=== PATIENT | female | born 1950 | race Caucasian/White ===

== ENCOUNTER → 2023-06-04 | Emergency (ER) | payer OTHER ==
[2023-06-04 12:37] LABS: Absolute Lymphocytes (CBC) 1.3 K/uL (0.7-4.9); Hematocrit 35.6 % (36.0-45.0); Lymphocytes % 15.3 % (15.3-44.8); MCV 92.2 fL (80-100); Platelets 529 thou/uL (152-406); RBC Red Blood Cell Count 3.86 M/uL (3.86-4.86)
[2023-06-04 12:56] LABS: Albumin 2.7 g/dL (3.4-5.0); Bilirubin Total 0.3 mg/dL (0.2-1.0); Potassium 4.3 mEq/L (3.5-5.1); Protein, Total 6.9 g/dL (6.4-8.2)
--- NOTE | 2023-06-04 13:17 | RAD REPORT ---
EXAM DESCRIPTION: RAD - Chest Single View - 06/04/2023 1:08 pm CLINICAL HISTORY: DYSPNEA COMPARISON: CHEST PA AND LAT 2 VIEW dated 07/22/2008; Chest For Pe Angio dated 05/08/2023 FINDINGS: Lines: None. Lungs: Much of the right lung is collapsed as result of the pleural fluid and probably the known lung mass. The left lung is clear. Pleural: Large right pleural effusion. Cardiac: The heart size is within normal limits. Mediastinum: Within normal limits. Bones: No acute fractures. Other: None IMPRESSION: Near complete opacification of the right hemithorax likely a combination of large right effusion, atelectasis, and known lung mass.
--- NOTE | 2023-06-04 14:25 | EDPHYS ---
Physician Documentation [facility] Name: Shara Go Age: 73 yrs Sex: Female : 1950 Arrival Date: 06/04/2023 Time: 10:51 Bed 15 Private MD: ED Physician Ryland Cummings HPI: 06/04 17:01 This 73 yrs old Female presents to ER via Wheelchair with complaints of Constipation, kdr Rt side pain, Cough, Chest Congestion, Shortness Of Breath. 17:01 Patient presents to the ED complaining of right upper quadrant pain and right flank kdr pain. She also complains of shortness of breath has been worsening over the last 6 weeks. Patient had been instructed to take laxatives and stool softeners as well as an inhaler for her shortness of breath. None of these interventions appear to be providing her with relief. Patient is further concerned that she gets tachycardia with the use of the inhaler and is reluctant to continue his use. Patient has a history of prior lung cancer. Patient had had a CT at the beginning of this month which revealed some changes that some interpreted as a potential return of her cancer. Dr. Cummins's on the other hand felt that there was another explanation as opposed to the return of cancer. Patient is not in any acute distress and her vital signs are otherwise stable. Her chest oxygen saturation is normal.. Onset: The symptoms/episode began/occurred gradually, 6 week(s) ago. Severity of symptoms: At their worst the symptoms were very mild in the emergency department the symptoms are unchanged. The patient has not experienced similar symptoms in the past. The patient has been recently seen by a physician:. Historical: - Allergies: 11:10 Sulfa (Sulfonamide Antibiotics); hb 11:10 demeclocycline; hb - Immunization history:: Adult Immunizations up to date. - Social history:: Smoking status: Patient/guardian denies using tobacco, Stopped _ months ago 1. ROS: 17:01 Constitutional: Negative for fever, chills, and weight loss, Eyes: Negative for injury, kdr pain, redness, and discharge, Neck: Negative for injury, pain, and swelling, Cardiovascular: Negative for chest pain, palpitations, and edema, Back: Negative for injury and pain, : Negative for injury, bleeding, discharge, and swelling, MS/Extremity: Negative for injury and deformity, Skin: Negative for injury, rash, and discoloration, Neuro: Negative for headache, weakness, numbness, tingling, and seizure activity. Psych: Negative for depression, anxiety, suicide ideation, homicidal ideation, and hallucinations, Allergy/Immunology: Negative for hives, rash, and allergies, Endocrine: Negative for neck swelling, polydipsia, polyuria, polyphagia, and marked weight changes, Hematologic/Lymphatic: Negative for swollen nodes, abnormal bleeding, and unusual bruising, 17:01 Respiratory: Positive for dyspnea on exertion, shortness of breath, on exertion. 17:01 Abdomen/GI: Positive for abdominal pain, of the anterior aspect of right lateral abdomen and right upper quadrant, Exam: 17:01 Constitutional: This is a well developed, well nourished patient who is awake, alert, kdr and in no acute distress. Head/Face: Normocephalic, atraumatic. Eyes: Pupils equal round and reactive to light, extra-ocular motions intact. Lids and lashes normal. Conjunctiva and sclera are non-icteric and not injected. Cornea within normal limits. Periorbital areas with no swelling, redness, or edema. Neck: Trachea midline, no thyromegaly or masses palpated, and no cervical lymphadenopathy. Supple, full range of motion without nuchal rigidity, or vertebral point tenderness. No Meningismus. Chest/axilla: Normal chest wall appearance and motion. Nontender with no deformity. No lesions are appreciated. Cardiovascular: Regular rate and rhythm with a normal S1 and S2. No gallops, murmurs, or rubs. Normal PMI, no JVD. No pulse deficits. Respiratory: Lungs have equal breath sounds bilaterally, clear to auscultation and percussion. No rales, rhonchi or wheezes noted. No increased work of breathing, no retractions or nasal flaring. Abdomen/GI: Soft, non-tender, with normal bowel sounds. No distension or tympany. No guarding or rebound. No evidence of tenderness throughout. Back: No spinal tenderness. No costovertebral tenderness. Full range of motion. Skin: Warm, dry with normal turgor. Normal color with no rashes, no lesions, and no evidence of cellulitis. MS/ Extremity: Pulses equal, no cyanosis. Neurovascular intact. Full, normal range of motion. Neuro: Awake and alert, GCS 15, oriented to person, place, time, and situation. Cranial nerves II-XII grossly intact. Motor strength 5/5 in all extremities. Sensory grossly intact. Cerebellar exam normal. Normal gait. Psych: Awake, alert, with orientation to person, place and time. Behavior, mood, and affect are within normal limits. Vital Signs: 11:07 BP 135 / 89; Pulse 95; Resp 18; Temp 98.4; Pulse Ox 97% on R/A; Weight 56.7 kg; Height hb 5 ft. 5 in. ; Pain 8/10; 11:07 Body Mass Index 20.80 (56.70 kg, 165.1 cm) hb 11:07 Pain Scale: Adult hb MDM: 14:24 Patient medically screened. kdr 17:01 Data reviewed: vital signs, nurses notes, lab test result(s), radiologic studies. kdr 06/04 11:48 Order name: CBC with Diff; Complete Time: 13:48 kdr 06/04 11:48 Order name: CMP; Complete Time: 13:48 kdr 06/04 11:48 Order name: Lipase; Complete Time: 13:48 kdr 06/04 13:00 Order name: PROBNP kdr 06/04 12:16 Order name: CXR XRAY; Complete Time: 13:48 kdr 06/04 13:17 Order name: Thoracentesis w/ US Guide EDPA 06/04 11:48 Order name: IV Saline Lock; Complete Time: 12:32 kdr 06/04 11:48 Order name: Labs collected and sent; Complete Time: 12:32 kdr Administered Medications: No medications were administered Disposition Summary: 06/04/23 14:24 Discharge Ordered Problem: an ongoing problem kdr Symptoms: have improved kdr Condition: Stable kdr Diagnosis - Shortness of breath kdr - Pleural effusion, not elsewhere classified kdr - Constipation kdr Followup: kdr - With: Private Physician - When: 2 - 3 days - Reason: If symptoms return, Further diagnostic work-up, Recheck today's complaints, Continuance of care, Re-evaluation by your physician Discharge Instructions: - Discharge Summary Sheet kdr - Pleural Effusion kdr - Shortness of Breath, Adult, [id number] kdr - Constipation, Adult, [id number] kdr Forms: - Medication Reconciliation Form kdr - Thank You Letter kdr - Patient Portal Instructions kdr - Leadership Thank You Letter kdr Signatures: Dispatcher [employer] EDMS Rittger, Ryland, MD MD kdr Jenae Knight, RN RN hb
--- NOTE | 2023-06-04 14:25 | ER ---
Nurse's Notes [facility] Name: Shara Go Age: 73 yrs Sex: Female : 1950 Arrival Date: 06/04/2023 Time: 10:51 Bed 15 Private MD: Diagnosis: Shortness of breath;Pleural effusion, not elsewhere classified;Constipation Presentation: 06/04 11:07 Chief complaint: Constipation, right sided abdominal pain, and SOB x 6 weeks. Has been hb instructed to take laxatives and softeners but has only taken one dose due to cramping. Coronavirus screen: At this time, the client does not indicate any symptoms associated with coronavirus-19. Ebola Screen: No symptoms or risks identified at this time. Initial Sepsis Screen: Does the patient meet any 2 criteria? No. Patient's initial sepsis screen is negative. Does the patient have a suspected source of infection? No. Patient's initial sepsis screen is negative. Risk Assessment: Do you want to hurt yourself or someone else? Patient reports no desire to harm self or others. Onset of symptoms was April 2023. 11:07 Method Of Arrival: Wheelchair hb 11:07 Acuity: NOAH 3 hb Historical: - Allergies: 11:10 Sulfa (Sulfonamide Antibiotics); hb 11:10 demeclocycline; hb - Immunization history:: Adult Immunizations up to date. - Social history:: Smoking status: Patient/guardian denies using tobacco, Stopped _ months ago 1. Screenin:35 [facility] ED Fall Risk Assessment (Adult) History of falling in the last 3 months, ph including since admission No falls in past 3 months (0 pts) Confusion or Disorientation No (0 pts) Intoxicated or Sedated No (0 pts) Impaired Gait Yes (1 pt) Mobility Assist Device Used Yes (1 pt) Altered Elimination No (0 pt) Score/Fall Risk Level 0 - 2 = Low Risk Oriented to surroundings, Maintained a safe environment, Provided non-skid footwear, Hourly rounding (assess needs \T\ fall precautionary measures) done. Abuse screen: Denies threats or abuse. Denies injuries from another. Nutritional screening: No deficits noted. Tuberculosis screening: No symptoms or risk factors identified. Assessment: 12:33 General: Appears in no apparent distress. Behavior is calm, cooperative, Reports ph fatigue for. 12:33 Pain: Complains of pain in right upper quadrant and right lower quadrant. Neuro: Level ph of Consciousness is awake, alert, obeys commands, Oriented to person, place, time, situation. Cardiovascular: Capillary refill < 3 seconds in bilateral fingers Patient's skin is warm and dry. Respiratory: Airway is patent Respiratory effort is even, unlabored, Respiratory pattern is regular, symmetrical. Respiratory: Reports cough that is. GI: Abdomen is non-distended, Reports lower abdominal pain, upper abdominal pain, constipation. : No signs and/or symptoms were reported regarding the genitourinary system. Derm: Skin is pink, warm \T\ dry. Musculoskeletal: Circulation, motion, and sensation intact. Range of motion: intact in all extremities. 13:24 Reassessment: taken to radiology for thoracentesis. ph Vital Signs: 11:07 BP 135 / 89; Pulse 95; Resp 18; Temp 98.4; Pulse Ox 97% on R/A; Weight 56.7 kg; Height hb 5 ft. 5 in. ; Pain 8/10; 11:07 Body Mass Index 20.80 (56.70 kg, 165.1 cm) hb 11:07 Pain Scale: Adult hb ED Course: 10:53 Patient arrived in ED. mr 10:56 Ryland Cummings MD is Attending Physician. kdr 11:01 Marina Felix, NICOLASA is Primary Nurse. ph 11:10 Triage completed. hb 11:10 Arm band placed on. hb 12:32 CBC with Diff Sent. ph 12:32 CMP Sent. ph 12:33 Lipase Sent. ph 12:35 Patient has correct armband on for positive identification. Bed in low position. Call ph light in reach. Pulse ox on. NIBP on. 13:10 CXR XRAY In Process Unspecified. EDMS 13:37 Thoracentesis w/ US Guide In Process Unspecified. EDMS Administered Medications: No medications were administered Medication: 12:35 VIS not applicable for this client. ph Outcome: 14:24 Discharge ordered by . kdr 14:55 Patient left the ED. hb Signatures: Dispatcher [employer] EDMS Ryland Cummings MD MD kdr Sultana Sierra, Reg Reg mr Marina Felix, RN RN ph Jenae Knight RN RN hb
[2023-06-04 16:25] VITALS: BP 135/89; TEMP 98.4; O2SAT 97
[2023-06-04 17:01] LABS: Appearance VERY TURBID (CLEAR); Body Fluid Source PLEURAL; Body Fluid WBC 642 /mm^3; Color of fluid Brown (COLORLESS)
--- NOTE | 2023-06-05 12:56 | RAD REPORT ---
EXAM DESCRIPTION: US - Thoracentesis w/ US Guide - 06/04/2023 2:06 pm CLINICAL HISTORY: PL FLUID COMPARISON: Chest Single View dated 06/04/2023 FINDINGS: Preoperative diagnosis: Right pleural effusion Post operative diagnosis: Same Conscious Sedation: None. Estimated blood loss: Minimal Specimens:A small volume of fluid was sent for requested lab studies. Informed consent was obtained following discussion of the risks and benefits of the procedure. Time-o ut procedure was performed. The patient was placed in the upright recumbent position and the right lo wer back was prepped and draped in the usual sterile fashion. 1% Lidocaine was infiltrated into the soft tissues for local anesthesia. Under sonographic guidance, a thoracentesis needle and 6 Bulgarian c atheter was advanced into the right pleural space. Approximately 1.6 liters serosanguineous fluid was aspirated. Fluid was sent to pathology and cytology for requested analysis. The patient tolerated th e procedure without immediate complication and transferred to the floor in stable condition. IMPRESSION: Successful ultrasound-guided thoracentesis as detailed.
[2023-06-08 18:56] LABS: TOTAL PROTEIN, PLEURAL FLUID 3.5 g/dL
== END ==
LOC: ER 10:51
DX: J90 Pleural effusion, not elsewhere classified (principal); K59.00 Constipation, unspecified; R10.11 Right upper quadrant pain; Z88.1 Allergy status to other antibiotic agents; Z88.2 Allergy status to sulfonamides
CPT/HCPCS: 32555; 36415; 71045; 80053; 82945; 83690; 83880; 84157; 85025; 87015; 87102; 87116; 87206; 88108; 88305; 89050; 99283

== ENCOUNTER 2023-06-12 08:00 | Day surgery (SDC) | payer OTHER ==
[2023-06-12] MEDS ORDERED: Ringers Lactate 1,000 ML IV ONE ×2 (08:41→12:03)
[2023-06-12] MEDS ORDERED: CEFAZOLIN SODIUM 1 GM/VIAL ONE (08:41)
[2023-06-12] MEDS ORDERED: ONDANSETRON 4 MG/2 ML VIAL ONE (08:49)
[2023-06-12] MEDS ORDERED: propofoL 200 MG/20 ML VIAL IV ONE (08:49)
[2023-06-12] MEDS ORDERED: LIDOCAINE 2% MPF 5 ML VIAL ONE (08:49)
[2023-06-12] MEDS ORDERED: FENTANYL CITR 100 MCG/2 ML ONE (08:50)
[2023-06-12 08:56] LABS: Carcinoembryonic Antigen 8.1 ng/mL (0-5.0); Potassium 3.9 mEq/L (3.5-5.1)
--- NOTE | 2023-06-12 09:12 | RAD REPORT ---
EXAM DESCRIPTION: RAD - Chest Pa And Lat (2 Views) - 06/12/2023 8:47 am CLINICAL HISTORY: pre op for surgery. Hypertension COMPARISON: Chest Single View dated 06/04/2023; CHEST PA AND LAT 2 VIEW dated 07/22/2008 TECHNIQUE: PA and lateral views of the chest were obtained. FINDINGS: Persistent near complete opacification of the right hemithorax with some residual aerated apical segments. Trachea remains midline. Heart size is normal and central vasculature is within norm al limits. No left-sided pleural effusion or pneumothorax seen. No acute bony finding noted. IMPRESSION: Persistent near complete opacification of the right hemithorax.
[2023-06-12 09:15] LABS: Absolute Lymphocytes (CBC) 1.1 K/uL (0.7-4.9); Hematocrit 32.8 % (36.0-45.0); Lymphocytes % 16.3 % (15.3-44.8); MCV 92.1 fL (80-100); MPV 6.3 fL (7.6-11.3); Platelets 529 thou/uL (152-406); RBC Red Blood Cell Count 3.57 M/uL (3.86-4.86)
--- NOTE | 2023-06-12 09:58 | P.OP ---
Preoperative diagnosis: RIGHT recurrent pleural effusion Postoperative diagnosis: RIGHT recurrent pleural effusion Primary procedure: Placement of RIGHT Tunneled Pleur-X Thoracic Catheter Anesthesia: MAC + Local Estimated blood loss: <5cc Specimen: pleural fluid Findings: 1050cc of redish clear pleural fluid removed Complications: None Drain(s): Other (Pleur-X catheter) Transferred to: Recovery Room Condition: Good
--- NOTE | 2023-06-12 10:40 | OP ---
Date of Procedure: 06/12/2023 Surgeon: Héctor Tellez MD, Preoperative Diagnosis: Right recurrent pleural effusion. Postoperative Diagnosis: Right recurrent pleural effusion. Procedure Performed: Placement of a right tunneled PleurX thoracic catheter. Anesthesia: MAC plus local with 0.25% Marcaine. Estimated Blood Loss: 5 cc. Specimen: Pleural fluid. Findings: I removed 1050 cc of reddish clear pleural fluid and sent for analysis. Complications: None. Drains: The PleurX catheter. Disposition: The patient transferred to recovery room in good condition. Procedure In Detail: After informed was obtained, the patient was brought into the operating room, p repped and draped in the usual sterile fashion. After adequate anesthesia achieved, I found an area of the anterior axillary line at the 5th and 6th intercostal space. I anesthetized the skin includin g a tract inferior and anterior from insertion site. Anesthetized the entire tract. At this area ma de a small incision at both sites using an 11 blade down to subcutaneous tissues. Using a finder nee dle, I was able to cannulate over the rib and the thoracic space. Yellowish red pleural fluid was re turned. I advanced the wire and using the introducer sheath at this point wire was left in place. I ntroducer sheath and needle removed. At this point, I brought in the tunneling device and brought th e catheter into the insertion site. I then performed sequential dilatation using Seldinger technique over the wire and inserted the introducer sheath pushing posterior cranially. I then introduced the catheter. Yellowish red pleural fluid was returned. I hooked at the chamber at this point, and phillip roximately 10 to 50 cc of reddish pleural fluid was returned immediately and this was sent off for pa thologic examination. At this point, the area was irrigated. The insertion site was closed using 2 interrupted 3-0 nylon sutures and a sterile dressing was placed over top. The patient tolerated the procedure well without incident or complication, transferred to PACU in good condition, where a chest x-ray will be performed. All counts were correct at the end of the case. CARA/MODL Voice ID: [id number] Report ID: [id number]
--- NOTE | 2023-06-12 10:57 | RAD REPORT ---
[facility] 10:29 am CLINICAL HISTORY: post-op:pleural cath insertion COMPARISON: Chest Pa And Lat (2 Views) dated 06/12/2023; Chest Single View dated 06/04/2023; CHEST PA AND LAT 2 VIEW dated 07/22/2008 TECHNIQUE: Portable AP view of the chest. FINDINGS: Interval placement of right pleural drainage catheter with tip projecting in the right cos tophrenic angle. Decreased size of the basal pleural effusion component, although the aerated segment appears to project more inferiorly and peripherally compared to the preprocedure exam, which may rel ate to layering of the residual effusion component. No pneumothorax or left effusion. The cardiomedi astinal contours are unremarkable. IMPRESSION: Satisfactory positioning of right pleural drainage catheter. Layering of the residual ef fusion component, with overall suggested decrease in volume. No pneumothorax P
[2023-06-12 12:03] VITALS: TEMP 98.3
--- NOTE | 2023-06-12 13:39 | EKG ---
Test Date: 2023-06-12 Test Time: 08:48:53 Screen Printing Machine Operator Helper: BTRE MEASUREMENT RESULTS: Intervals: Rate: 74 WI: 162 QRSD: 78 QT: 418 QTc: 463 Leroy: P: 84 WI: 162 QRS: 89 T: 69 INTERPRETIVE STATEMENTS: Normal sinus rhythm Normal ECG Compared to ECG 09/15/2016 12:20:04 Sinus bradycardia no longer present Electronically Signed On 06-12-23 13:38:43 PHYSICAL THERAPY MANAGER by Evlin Davey
[2023-06-12 13:53] VITALS: BP 117/70; O2SAT 99
[2023-06-12 17:56] LABS: Appearance VERY TURBID (CLEAR); Body Fluid Source PLEURAL; Body Fluid WBC 927 /mm^3; Color of fluid Brown (COLORLESS)
== END 2023-06-12 13:23 | disposition home or self-care (01) ==
LOC: OR 08:00
PROVIDERS: ATTEND Surgery
PROC: 0B9 Respiratory System, Drainage (ICD-10-PCS; principal; 2023-06-12 09:00)
DX: J90 Pleural effusion, not elsewhere classified (principal); Z85.118 Personal history of other malignant neoplasm of bronchus and lung; Z85.038 Personal history of other malignant neoplasm of large intestine
CPT/HCPCS: 32550; 93005; 85025; 80048; 36415; 88108; 89050; 82945; 88305; 82378; 87015; 87206; 87116; 71045; 71046; J2704; J2001; J3010; J2405; J7120 ×2; J0690

== ENCOUNTER 2023-06-29 13:13 | Observation (INO) | payer OTHER ==
[2023-06-29] MEDS ORDERED: NA CHLORIDE 0.9% 1,000 ML ONE ×2 (13:41→16:25)
[2023-06-29 14:12] LABS: Absolute Lymphocytes (CBC) 1.2 K/uL (0.7-4.9); Hematocrit 33.3 % (36.0-45.0); Lymphocytes % 13.5 % (15.3-44.8); MCV 90.9 fL (80-100); MPV 6.1 fL (7.6-11.3); Platelets 599 thou/uL (152-406); RBC Red Blood Cell Count 3.66 M/uL (3.86-4.86)
[2023-06-29 14:32] LABS: Potassium 3.9 mEq/L (3.5-5.1); Troponin High Sensitivity 3.6 pg/mL (<58.9)
--- NOTE | 2023-06-29 14:43 | RAD REPORT ---
EXAM DESCRIPTION: RADChest Single View06/29/2023 2:00 pm CLINICAL HISTORY: pleural effusion, s/p draining, drain in place COMPARISON: Chest Single View dated 06/12/2023; Chest Pa And Lat (2 Views) dated 06/12/2023; Chest Singl e View dated 06/04/2023; CHEST PA AND LAT 2 VIEW dated 07/22/2008; Chest For Pe Angio dated 05/08/2023 TECHNIQUE: Portable AP view of the chest. FINDINGS: No pneumothorax. Right pleural drainage catheter is unchanged in position. Interval decrea se in size of the right pleural effusion with residual moderate layering component. Right upper perit bre masslike opacity is stable. Left lung remains clear. The cardiomediastinal contours are unrem arkable. IMPRESSION: Interval decreased size of right pleural effusion with moderate residual as above.
[2023-06-29] MEDS ORDERED: ALBUMIN HUMAN 25% 100 ML IV ONE (16:25)
--- NOTE | 2023-06-29 16:48 | ER ---
Nurse's Notes [facility] Name: Shara Go Age: 73 yrs Sex: Female : 1950 Arrival Date: 06/29/2023 Time: 13:13 Bed 3 Private MD: Diagnosis: Hypotension, unspecified Presentation: 06/29 13:24 Chief complaint: EMS states: DYSPNEA AND HYPOTENSION AFTER PLEURAL DRAIN. Coronavirus bp screen: At this time, the client does not indicate any symptoms associated with coronavirus-19. Ebola Screen: No symptoms or risks identified at this time. Initial Sepsis Screen: Does the patient meet any 2 criteria? No. Patient's initial sepsis screen is negative. Does the patient have a suspected source of infection? No. Patient's initial sepsis screen is negative. Risk Assessment: Do you want to hurt yourself or someone else? Patient reports no desire to harm self or others. Onset of symptoms is unknown. Care prior to arrival: IV initiated. 20 GA, in the left forearm. 13:24 Method Of Arrival: EMS: [facility] bp 13:24 Acuity: NOAH 3 bp Triage Assessment: 13:44 General: Appears in no apparent distress. Behavior is calm, cooperative, appropriate bp for age. Historical: - Allergies: 13:44 Sulfa (Sulfonamide Antibiotics); bp - Home Meds: 13:44 levothyroxine oral [Active]; citalopram oral [Active]; Evista 60 mg Oral tablet bp [Active]; amlodipine oral [Active]; - PMHx: 13:44 CANCER; bp - Immunization history:: Adult Immunizations up to date. - Social history:: Smoking status: Patient denies any tobacco usage or history of. Screenin:30 [facility] ED Fall Risk Assessment (Adult) History of falling in the last 3 months, bp including since admission No falls in past 3 months (0 pts). Abuse screen: Denies threats or abuse. Denies injuries from another. Nutritional screening: No deficits noted. Tuberculosis screening: No symptoms or risk factors identified. Assessment: 13:30 General: SEE TRIAGE NOTE. bp 15:30 Reassessment: Patient appears in no apparent distress at this time. Patient and/or ap3 family updated on plan of care and expected duration. Pain level reassessed. Patient is alert, oriented x 3, equal unlabored respirations, skin warm/dry/pink. 16:15 Reassessment: No changes from previously documented assessment. Patient is alert, bp oriented x 3, equal unlabored respirations, skin warm/dry/pink. Vital Signs: 13:24 BP 97 / 58; Pulse 85; Resp 16; Temp 98; Pulse Ox 96% ; bp 14:00 BP 95 / 62; Pulse 77; Resp 20; Pulse Ox 99% on R/A; MAP 74 mmHg; ap3 14:30 BP 84 / 57; Pulse 79; Resp 20; Pulse Ox 98% on R/A; MAP 66 mmHg; ap3 15:00 BP 82 / 54; Pulse 83; Resp 21; Pulse Ox 96% on R/A; MAP 65 mmHg; ap3 15:30 BP 83 / 54; Pulse 78; Resp 21; Pulse Ox 97% on R/A; MAP 64 mmHg; ap3 16:15 BP 105 / 63; Pulse 79; Resp 16; Pulse Ox 98% ; bp 16:43 BP 96 / 69; ec2 17:30 BP 124 / 80; Pulse 84; Resp 16; Pulse Ox 97% ; bp 18:30 BP 108 / 72; Pulse 84; Resp 16; Pulse Ox 96% ; bp 20:00 BP 129 / 98; Pulse 85; Resp 21; Pulse Ox 97% ; bp ED Course: 13:18 Patient arrived in ED. ec2 13:18 Zohaib Cavazos MD is Attending Physician. ec2 13:29 Triage completed. ld1 13:30 Patient has correct armband on for positive identification. Bed in low position. Call bp light in reach. 13:30 Maintain EMS IV. Dressing intact. Good blood return noted. Site clean \T\ dry. Gauge \T\ bp site: 20 GA LEFT FA. 13:31 Shreyas Hernandez, NICOLASA is Primary Nurse. bp 13:47 Arm band placed on. bp 14:02 XRAY Chest (1 view) In Process Unspecified. EDMS 16:47 Saran Santos MD is Hospitalizing Provider. ec2 Administered Medications: 13:47 Drug: NS 0.9% IV 1000 ml IV at 1 bolus Per protocol; 1000 mL bolus Route: IV; Rate: 1 bp bolus; Site: left forearm; 18:58 Follow up: IV Status: Completed infusion; IV Intake: 1000ml bp 15:17 Drug: NS 0.9% IV 1000 ml IV at 1 bolus Per protocol; 1000 mL bolus Route: IV; Rate: 1 ap3 bolus; Site: left antecubital; 18:58 Follow up: IV Status: Completed infusion; IV Intake: 1000ml bp 16:50 Drug: NS 0.9% IV 1000 ml IV at 1 bolus Per protocol; 1000 mL bolus Route: IV; Rate: 1 bp bolus; Site: left antecubital; 18:58 Follow up: IV Status: Completed infusion; IV Intake: 1000ml bp 16:50 Drug: Albumin IVPB 25 grams 100 ml IVPB once; (Note: Albumin 25% concentration) Volume: bp 100 ml; Route: IVPB; Site: left antecubital; 18:58 Follow up: IV Status: Completed infusion bp Intake: 18:58 IV: 1000ml; Total: 1000ml. bp 18:58 IV: 1000ml; Total: 2000ml. bp 18:58 IV: 1000ml; Total: 3000ml. bp Outcome: 16:48 Decision to Hospitalize by Provider. ec2 21:25 Patient left the ED. bp Signatures: Dispatcher [employer] EDMS Shreyas Hernandez RN RN bp Terrie Oreilly RN RN ap3 Karlie Márquez RN RN ld1 Zohaib Cavazos MD MD ec2 Corrections: (The following items were deleted from the chart) 13:28 Chief complaint: Patient states: Upper abdominal pain X 1 hour. ld1 ld1 34 13:28 Coronavirus screen: At this time, the client does not indicate any symptoms ld1 associated with coronavirus-19. ld1 13:28 Ebola Screen: No symptoms or risks identified at this time. ld1 ld1 :34 13:28 Initial Sepsis Screen: Does the patient meet any 2 criteria? No. Patient's ld1 initial sepsis screen is negative. Does the patient have a suspected source of infection? No. Patient's initial sepsis screen is negative. ld1 34 13:28 Risk Assessment: Do you want to hurt yourself or someone else? Patient reports no ld1 desire to harm self or others. ld1 34 13:28 Onset of symptoms was June 29, 2023 ld1 ld1 34 13:28 Method Of Arrival: Wheelchair ld1 ld1 :34 13:28 BP 144 / 90; Pulse 65bpm; Resp 18bpm; Pulse Ox 100% RA; Temp 97.6F Temporal; 63.5 ld1 kg; Height 5 ft. 7 in.; BMI: 21.9; Pain 8/10, Adult; ld1 34 13:28 Acuity: NOAH 3 ld1 ld1 34 13:29 Allergies: Sulfa (Sulfonamide Antibiotics); ld1 ld1 13:29 Allergies: demeclocycline; ld1 ld1 13:29 PSHx: Cholecystectomy; ld1 ld1 13:29 PSHx: Heart Bypass; ld1 ld1 34 13:29 Immunization history: Adult Immunizations up to date, ld1 ld1 13:29 Social history: Smoking status: Patient denies any tobacco usage or history of. ld1 Patient/guardian denies using alcohol, ld1 13:31 Home Meds: Eliquis 5 mg oral tablet 1 tab 2 times per day; ld1 ld1 13:31 Home Meds: carvedilol 3.125 mg oral tablet 1 tab once; ld1 ld1 13:31 Home Meds: digoxin 250 mcg (0.25 mg) Oral tablet 1 tab once; ld1 ld1 35 13:29 General: Appears in no apparent distress. comfortable, Behavior is calm, ld1 cooperative, appropriate for age, ld1 13:29 Pain: Complains of pain in right upper quadrant and left upper quadrant Pain does ld1 not radiate. Pain currently is 8 out of 10 on a pain scale. Quality of pain is described as sharp, Pain began 1 hour ago. Is continuous, ld1 13:29 EENT: No signs and/or symptoms were reported regarding the EENT system. ld1 ld1 13:29 Neuro: Level of Consciousness is awake, alert, obeys commands, Oriented to ld1 person, place, time, situation, ld1 13:29 Cardiovascular: Capillary refill < 3 seconds Patient's skin is warm and dry. ld1 ld1 35 13:29 Respiratory: Airway is patent Respiratory effort is even, unlabored, ld1 ld1 13:29 GI: Abdomen is flat, non-distended, ld1 ld1 :35 13:29 : No signs and/or symptoms were reported regarding the genitourinary system. ld1ld1 :35 13:29 Derm: No signs and/or symptoms reported regarding the dermatologic system. ld1 ld1 :35 13:29 Musculoskeletal: No signs and/or symptoms reported regarding the musculoskeletal ld1 system. ld1 :35 13:29 Arm band placed on right wrist. ld1 ld1
--- NOTE | 2023-06-29 16:48 | EDPHYS ---
Physician Documentation [facility] Name: Shara Go Age: 73 yrs Sex: Female : 1950 Arrival Date: 06/29/2023 Time: 13:13 Bed 3 Private MD: ED Physician Zohaib Cavazos HPI: 06/29 13:19 This 73 yrs old Female presents to ER via Unassigned with complaints of sob. ec2 13:20 Patient arrives today for shortness of breath and chest tightness. Patient reports that ec2 she has a pleural drain in place, had approximately 1 L removed this morning and is having some chest tightness and some shortness of breath. No fevers or chills, no nausea or vomiting, no change in the color of the pleural fluid.. Historical: - Allergies: 13:44 Sulfa (Sulfonamide Antibiotics); bp - Home Meds: 13:44 levothyroxine oral [Active]; citalopram oral [Active]; Evista 60 mg Oral tablet bp [Active]; amlodipine oral [Active]; - PMHx: 13:44 CANCER; bp - Immunization history:: Adult Immunizations up to date. - Social history:: Smoking status: Patient denies any tobacco usage or history of. ROS: 13:20 Constitutional: as per hpi ec2 Exam: 13:20 Constitutional: GEN: NAD Head: atraumatic Eyes: EOMI Ears: External ears are ec2 normal. CV: regular rate LUNGS: no respiratory distress, scattered rhonchi in the right lung field ABD: non-distended SKIN: no evidence of rashes MSK: no evidence of trauma NEURO: moves all extremities equally Vital Signs: 13:24 BP 97 / 58; Pulse 85; Resp 16; Temp 98; Pulse Ox 96% ; bp 14:00 BP 95 / 62; Pulse 77; Resp 20; Pulse Ox 99% on R/A; MAP 74 mmHg; ap3 14:30 BP 84 / 57; Pulse 79; Resp 20; Pulse Ox 98% on R/A; MAP 66 mmHg; ap3 15:00 BP 82 / 54; Pulse 83; Resp 21; Pulse Ox 96% on R/A; MAP 65 mmHg; ap3 15:30 BP 83 / 54; Pulse 78; Resp 21; Pulse Ox 97% on R/A; MAP 64 mmHg; ap3 16:15 BP 105 / 63; Pulse 79; Resp 16; Pulse Ox 98% ; bp 16:43 BP 96 / 69; ec2 17:30 BP 124 / 80; Pulse 84; Resp 16; Pulse Ox 97% ; bp 18:30 BP 108 / 72; Pulse 84; Resp 16; Pulse Ox 96% ; bp 20:00 BP 129 / 98; Pulse 85; Resp 21; Pulse Ox 97% ; bp MDM: 13:18 Patient medically screened. ec2 13:20 ED course: Patient arrives today for evaluation of chest tightness and shortness of ec2 breath. Examination remarkable for well-appearing nontoxic individual is otherwise in no acute distress with lung findings as above. Will obtain lab work, EKG, chest x-ray for further assessment of this complaint.. 14:56 Data reviewed: vital signs. ED course: Metabolic profile unremarkable, BNP minimally ec2 elevated at 300. Chest x-ray shows moderate-sized pleural effusion. . 15:35 ED course: EKG independently reviewed and interpreted by me, shows normal sinus rhythm, ec2 rate of 83, no acute ST segment elevations, nonconcerning intervals.. 16:47 ED course: Patient seem to be fluid responsive, we will keep her overnight and continue ec2 to observe her for her hypotension. I discussed the case with Dr. Santos, hospitalist who agrees to except this patient for admission.. 06/29 13:18 Order name: Basic Metabolic Panel; Complete Time: 14:56 ec2 06/29 13:18 Order name: CBC with Diff; Complete Time: 14:23 ec2 06/29 13:18 Order name: NT PRO-BNP; Complete Time: 14:56 ec2 06/29 13:20 Order name: Troponin HS; Complete Time: 14:56 ec2 06/29 15:53 Order name: Blood Culture Adult (2) ec2 06/29 15:53 Order name: Lactate w/ 2H reflex if indic. ec2 06/29 16:56 Order name: Comprehensive Metabolic Panel EDMS 06/29 16:56 Order name: Urinalysis w/ reflexes EDMS 06/29 13:18 Order name: XRAY Chest (1 view); Complete Time: 14:56 ec2 06/29 13:18 Order name: EKG; Complete Time: 13:19 ec2 06/29 16:56 Order name: CONS Physician Consult EDSD 06/29 13:18 Order name: Cardiac monitoring; Complete Time: 13:48 ec2 06/29 13:18 Order name: EKG - Nurse/Tech; Complete Time: 14:28 ec2 06/29 13:18 Order name: IV Saline Lock; Complete Time: 14:28 ec2 06/29 13:18 Order name: Labs collected and sent; Complete Time: 14:28 ec2 06/29 13:18 Order name: O2 Per Protocol; Complete Time: 13:47 ec2 06/29 13:18 Order name: O2 Sat Monitoring; Complete Time: 13:47 ec2 06/29 18:14 Order name: Labs - recollect needed: recollect green top; Complete Time: 18:58 bd Administered Medications: 13:47 Drug: NS 0.9% IV 1000 ml IV at 1 bolus Per protocol; 1000 mL bolus Route: IV; Rate: 1 bp bolus; Site: left forearm; 18:58 Follow up: IV Status: Completed infusion; IV Intake: 1000ml bp 15:17 Drug: NS 0.9% IV 1000 ml IV at 1 bolus Per protocol; 1000 mL bolus Route: IV; Rate: 1 ap3 bolus; Site: left antecubital; 18:58 Follow up: IV Status: Completed infusion; IV Intake: 1000ml bp 16:50 Drug: NS 0.9% IV 1000 ml IV at 1 bolus Per protocol; 1000 mL bolus Route: IV; Rate: 1 bp bolus; Site: left antecubital; 18:58 Follow up: IV Status: Completed infusion; IV Intake: 1000ml bp 16:50 Drug: Albumin IVPB 25 grams 100 ml IVPB once; (Note: Albumin 25% concentration) Volume: bp 100 ml; Route: IVPB; Site: left antecubital; 18:58 Follow up: IV Status: Completed infusion bp Disposition Summary: 06/29/23 16:48 Hospitalization Ordered Notes: Hospitalization Status: Inpatient Admission ec2 Provider: Saran Santos ec2 Condition: Stable ec2 Problem: an acute exacerbation ec2 Symptoms: have improved ec2 Bed/Room Type: Standard ec2 Location: Telemetry/MedSurg (Inpatient)(06/29/23 19:43) rv1 Room Assignment: [facility](06/29/23 19:43) rv1 Diagnosis - Hypotension, unspecified ec2 Forms: - Medication Reconciliation Form ec2 - SBAR form ec2 - Leadership Thank You Letter ec2 Signatures: Dispatcher [employer] Casi Cantu Brian, RN RN Terrie Mabry RN RN ap3 Karlie Márquez RN RN ld1 Seema Alvarez rv1 Zohaib Cavazos MD MD ec2 Corrections: (The following items were deleted from the chart) 34 13:29 Allergies: Sulfa (Sulfonamide Antibiotics); ld1 ld1 13:34 13:29 Allergies: demeclocycline; ld1 ld1 34 13:29 PSHx: Cholecystectomy; ld1 ld1 34 13:29 PSHx: Heart Bypass; ld1 ld1 1334 13:29 Immunization history: Adult Immunizations up to date, ld1 ld1 34 13:29 Social history: Smoking status: Patient denies any tobacco usage or history of. ld1 Patient/guardian denies using alcohol, ld1 13:31 Home Meds: Eliquis 5 mg oral tablet 1 tab 2 times per day; ld1 ld1 13:34 13:31 Home Meds: carvedilol 3.125 mg oral tablet 1 tab once; ld1 ld1 13:34 13:31 Home Meds: digoxin 250 mcg (0.25 mg) Oral tablet 1 tab once; ld1 ld1 18:18 16:48 Telemetry/MedSurg (Inpatient) ec2 bd 18:18 16:48 ec2 bd 19:43 18:18 [facility] ER HOLD bd rv1 19:43 18:18 ERHOLD- bd rv1
[2023-06-29] MEDS ORDERED: ONDANSETRON 4 MG/2 ML VIAL IV PRN (16:51)
[2023-06-29] MEDS ORDERED: ALBUTEROL 2.5 MG/3 ML NEB SOL NEB PRN (16:51)
[2023-06-29] MEDS ORDERED: ACETAMINOPHEN 500 MG TAB PO PRN (16:51)
--- NOTE | 2023-06-29 17:56 | P.SSS ---
Patient History Date of Service: 06/29/23 Reason for admission: WEAKNESS, LOW BP AFTER PLEURAL DRAIN History of Present Illness: MS MÉNDEZ IS A PATIENT WITH RECENTLY DIAGNOSED RECURRED STAGE 4 LUNG CANCER. SHE COMES FOR WEAKNESS, MILD LOW BP AFTER A LITER OF FLUID TAKEN OUT FROM THE PLEURAL CATHETER. FEW WEEKS AGO WE ARRANGED FOR THE CATHETER SHE HAS A LARGE EFFUSION AND WE SUSPECTED RECURENT CANCER WITH RCURRENT EFFUSION. WE SUSPECTD CYTOLOGY SHOWED LUNG CANCER. SHE WAS IN DENIAL UNTIL TODAY WHEN I TOLD HER THAT WE SEE CANCER IN THE FLUID. SHE DID NOT COME FOR VISIT AND DID NOT ANSWER CALLS SHE SAYS HER PLATE IS FULL. SHE IS A A SINGLE PERSON WITH TWO SISTERS AND NOT OTHER FAMILY. SHE IS NOT SURE IF SHE CAN AFFORD THERAPY FOR CANCER AND IS NOT SURE SHE WANTS TO DO THERAPY. I TOLD HER NOT TO WORRY ABOUT COST MANY TIMES THE ONCOLOGISTS ARE ABLE TO GET THERAPY APPROVED. I TOLD HER THERE ARE TWO CHOICES. ONE IS TO GO TO DR. TOUSSAINT AND START IMMUNOTHERAPY AND SECOND IS TO GO ON HOSPICE. SHE WILL TALK TO HER SISTERS AND DECIDE. Allergies demeclocycline [From Declomycin] Adverse Reaction (Verified 06/12/23 07:25) sensitivity to sun Sulfa (Sulfonamide Antibiotics) Adverse Reaction (Verified 06/12/23 07:25) Nausea/Vomiting Home medications list reviewed: Yes Home Medications: Citalopram [Celexa] 20 mg PO DAILY 01/14/16 Levothyroxine [Synthroid] 125 mcg PO [id number] 01/14/16 B2/Vits A,C,E/Lut/Zeaxanth/Min [Icaps Tablet] 1 each PO DAILY 06/05/16 Ascorbic Acid [Vitamin C] 1,000 mg PO DAILY 06/12/23 Mv-Mn/Om3/Dha/Epa/Fish/Lut/Dani [Ocuvite Adult 50 Plus Softgel] 1 each PO DAILY 06/12/23 Polyethylene Glycol 3350 [Miralax] 17 gm PO DAILY 06/12/23 Psyllium Husk [Metamucil] 0.4 gm PO DAILY 06/12/23 Raloxifene HCl [Evista] 60 mg PO DAILY 06/12/23 Vitamin D3/Vitamin K2 (Mk4) [K2 Plus D3 Tablet] 1 tab PO DAILY 06/12/23 Review of Systems 10-point ROS is otherwise unremarkable General: Weakness Physical Examination - Physical Exam General: Oriented x3, Mild distress HEENT: Atraumatic, PERRLA, Mucous membr. moist/pink, EOMI, Sclerae nonicteric Neck: Supple, 2+ carotid pulse no bruit, No LAD, Without JVD or thyroid abnormality Respiratory: Clear to auscultation bilaterally, Normal air movement Cardiovascular: Regular rate/rhythm, Normal S1 S2 Gastrointestinal: Normal bowel sounds, No tenderness Musculoskeletal: No tenderness Integumentary: No rashes Neurological: Normal gait, Normal speech, Normal strength at 5/5 x4 extr, Normal tone, Normal affect Lymphatics: No axilla or inguinal lymphadenopathy - Studies Laboratory Data (last 24 hrs) 06/29/23 06/29/23 14:00 14:00 WBC 8.90 Hgb 11.4 L Hct 33.3 L Plt Count 599 H Sodium 132 L Potassium 3.9 BUN 16 Creatinine 1.10 H Glucose 141 H - Diagnosis (Problem(s)) (1) Stage 4 lung cancer Current Visit: Yes Status: Chronic Plan: HPI FULL DISCUSSION DONE TODAY WITH HER. SHE WILL DECIDE BY AM AND LET ME KNOW. PROGNOSIS IS POOR. Qualifiers: Laterality: right Qualified Code(s): C34.91 - Malignant neoplasm of unspecified part of right bronchus or lung - Disposition Disposition: ROUTINE DISCHARGE
[2023-06-29 19:28] LABS: Albumin 2.7 g/dL (3.4-5.0); Bilirubin Total 0.2 mg/dL (0.2-1.0); Potassium 3.8 mEq/L (3.5-5.1); Protein, Total 6.4 g/dL (6.4-8.2)
[2023-06-30 04:46] VITALS: BP 119/78; TEMP 97.8
[2023-06-30] MEDS ORDERED: PNEUMOCOCCAL VACCINE 0.5 ML IMVAC ONE (08:00)
[2023-06-30] MEDS ORDERED: INFLUENZA VACCINE (for 6+ mo) 0.5 ML DOSE IMVAC ONE (08:00)
[2023-06-30 13:52] VITALS: O2SAT 95
--- NOTE | 2023-06-30 17:51 | EKG ---
Test Date: 2023-06-29 Test Time: 15:28:40 [employer] Design Lead: JASWANT MEASUREMENT RESULTS: Intervals: Rate: 83 IL: 160 QRSD: 72 QT: 382 QTc: 448 [place]: P: 78 IL: 160 QRS: 92 T: 81 INTERPRETIVE STATEMENTS: Normal sinus rhythm Rightward axis Borderline ECG Compared to ECG 06/12/2023 08:48:53 Right-axis deviation now present Electronically Signed On 06-30-23 17:49:03 [employer] by Elvin Davey
== END 2023-06-30 13:19 | disposition home health service (06) ==
LOC: ER 13:13 → INTOOBSV 16:51 → ERHOLD 16:51 → 2ND 19:53
PROVIDERS: ADMIT Internal Medicine; ATTEND Internal Medicine
DX: I95.9 Hypotension, unspecified (principal); C34.91 Malignant neoplasm of unspecified part of right bronchus or lung; Z88.2 Allergy status to sulfonamides
CPT/HCPCS: 93005; 87040 ×2; 85025; 80048; 36415; 83605; 84484; 80053; 83880; 71045; P9047; J7030 ×2; G0378